=== PATIENT | female | born 1990 | race Caucasian/White ===

== ENCOUNTER 2016-08-10 05:14 | Day surgery (SDC) | payer OTHER ==
[~2016-08-10 05:14] MED LIST: APRI PO; LEXAPRO20 PO; MULTIPLE VIT PO; [UNRECOGNIZED DRUG - OTHER] PO
== END 2016-08-10 09:49 | disposition home or self-care (01) ==
LOC: SDC 05:14
PROVIDERS: Orthopaedic Surgery
PROC: 3E0R3BZ Introduction of Anesthetic Agent into Spinal Canal, Percutaneous Approach (ICD-10-PCS; 2016-08-10)
PROC: B01BYZZ Fluoroscopy of Spinal Cord using Other Contrast (ICD-10-PCS; 2016-08-10)
PROC: 3E0R33Z Introduction of Anti-inflammatory into Spinal Canal, Percutaneous Approach (ICD-10-PCS; principal; 2016-08-10 07:15)
DX: M54.16 Radiculopathy, lumbar region (principal); F41.9 Anxiety disorder, unspecified; Z98.890 Other specified postprocedural states
CPT/HCPCS: 84703; J1040; J2250; J2405; J3010; Q9967